=== PATIENT | male | born 2000 | race Caucasian/White ===

== ENCOUNTER 2018-02-16 23:17 | Emergency (ER) | payer OTHER ==
[~2018-02-16] VITALS: Ht 180.3 cm; Wt 83.0 kg
[2018-02-16 23:29] VITALS: TEMP 36.5; Ht 180.3 cm; Wt 83.0 kg
--- NOTE | 2018-02-16 23:55 | EMERGENCY ROOM VISIT NOTE ---
ED Visit Note First contact with patient: 23:41 CHIEF COMPLAINT: Hand injury HISTORY OF PRESENT ILLNESS: This 17-year-old male patient presented to the emergency department after they injured the left hand during baseball. The patient rates the pain as throbbing and 6/10. The patient denies any numbness or tingling. The patient does not have injuries to the wrist. The patient has had a previous fracture to this hand. REVIEW OF SYSTEMS: A 6 system review of systems was completed with positives and pertinent negatives in the HPI. ALLERGIES: No known drug allergies MEDICATIONS: None PMH: Otherwise healthy SOCIAL HISTORY: Denies tobacco or EtOH use PHYSICAL EXAM: Vital Signs: Reviewed Nurse's notes, vital signs stable. GENERAL : 17-year-old male, in no acute distress, but appears to be in pain, well- developed, well-nourished. MUSCULOSKELETAL: There is no deformity of the left hand. There is tenderness over the fourth and fifth metacarpals/MTP joints. There is no thenar or hypothenar eminence atrophy. Normal thumb opposition to all fingers. [employer] strength 5/5. There is no laceration. Capillary refill less than 2 seconds. No tenderness of the fingers or wrist. Full range of motion of the wrist. No snuff box tenderness. Radial pulse 2+. NEURO: Alert and oriented to person, place, and time. Normal sensation to light and sharp touch. EMERGENCY DEPARTMENT COURSE: I examined the patient. An x-ray was performed and reviewed by myself and my supervising physician. It is consistent with a left fifth distal metacarpal fracture. IMPRESSION: Acute nondisplaced and non-angulated minimally comminuted extra-articular fracture involves the fifth metacarpal head and neck. The above report was generated using voice recognition software. It may contain grammatical, syntax or spelling errors. Electronically signed by: Ramon Salguero M.D. The patient was medicated with Motrin. The patient was put in an ulnar gutter splint. Neurovascular status was rechecked and intact. Discharge instructions were reviewed, and he was discharged in good condition DIAGNOSIS: Fifth metacarpal fracture DISCHARGE INSTRUCTIONS: Please keep the splint in place until seen by orthopedics. Please do not get it wet. Call first thing Sunday morning for a follow-up appointment with orthopedics. Ice and elevation for 24-48 hrs. Ibuprofen 800 mg and Tylenol 1000 mg every 6 hrs as needed for pain. Please do not hesitate to return to the emergency department with any new, worsening or concerning symptoms It was a pleasure participating in your care today This chart was completed in part utilizing [employer] Voice Recognition software. Attempts were made to minimize the grammatical errors, random word insertions, pronoun errors and incomplete sentences. Any formal questions or concerns about the content, text or information contained within the body of this dictation should be directly addressed to the provider for clarification.
[2018-02-16] MEDS: IBUPROFEN 200 MG TAB PO STA (23:56)
[2018-02-17] MEDS: IBUPROFEN 200 MG TAB PO STA (00:14)
[2018-02-17 00:50] VITALS: BP 122/81; PULSE 62; O2SAT 98
--- NOTE | 2018-02-17 06:31 | DIAGNOSTIC IMAGING REPORT ---
L HAND MIN 3 VIEWS ROUTINE HISTORY: 17 years-old Male injury to left hand acute left hand pain status post trauma. Pain is most pronounced within the region of the fifth metacarpal. COMPARISON: Left hand radiographs 10/28/2009 TECHNIQUE: 3 views of the left hand FINDINGS: Acute nondisplaced and non-angulated minimally comminuted fracture involves the fifth metacarpal head and neck without definite intra-articular extension or dislocation identified. There is moderate associated soft tissue swelling. No opaque foreign body. IMPRESSION: Acute nondisplaced and non-angulated minimally comminuted extra-articular fracture involves the fifth metacarpal head and neck. The above report was generated using voice recognition software. It may contain grammatical, syntax or spelling errors. Electronically signed by: Ramon Salguero M.D. 02/17/2018 6:30 AM Dictated Date/Time: 02/17/2018 6:28 AM
== END 2018-02-17 00:51 | disposition home or self-care (01) ==
LOC: C.EDB 23:18
DX: S62.397A Other fracture of fifth metacarpal bone, left hand, initial encounter for closed fracture (principal); X58.XXXA Exposure to other specified factors, initial encounter; Y93.64 Activity, baseball